=== PATIENT | female | born 1950 | race Caucasian/White ===

== ENCOUNTER → 2016-02-23 | Outpatient (CLI) | payer OTHER ==
--- NOTE | 2016-02-23 16:11 | MAMMOGRAPHY REPORT ---
BILATERAL DIGITAL SCREENING MAMMOGRAM WITH CAD: 02/23/2016 CLINICAL HISTORY: Routine screening. Patient has no complaints. TECHNIQUE: Current study was also evaluated with a Computer Aided Detection (CAD) system. Bilatera l CC and MLO views were obtained. COMPARISON: Comparison is made to exams dated: 02/21/2015 mammogram, 01/04/2014 mammogram, 3 mammogram - [facility], and 11/05/2011 mammogram. BREAST COMPOSITION: The tissue of both breasts is heterogeneously dense, which may obscure small ma sses. FINDINGS: No suspicious masses, calcifications, or areas of architectural distortion are noted in e ither breast. There has been no significant interval change compared to prior exams. IMPRESSION: ACR BI-RADS CATEGORY 1: NEGATIVE There is no mammographic evidence of malignancy. A 1 year screening mammogram is recommended. The p atient will receive written notification of the results. Approximately 10% of breast cancers are not detected with mammography. A negative mammographic repor t should not delay biopsy if a clinically suggestive mass is present. Yamini Danielle M.D. ah/:02/23/2016 13:19:34 Neon Sign Maker: Carol Arreola [facility] letter sent: Normal 1/2 BI-RADS Code: ACR BI-RADS Category 1: Negative
== END | disposition home or self-care (01) ==
LOC: C.MAMM 11:08
PROVIDERS: ATTEND Family Medicine
DX: Z12.31 Encounter for screening mammogram for malignant neoplasm of breast (principal)

== ENCOUNTER → 2016-09-06 | Outpatient (CLI) | payer OTHER ==
--- NOTE | 2016-09-06 15:27 | DIAGNOSTIC IMAGING REPORT ---
ULTRASOUND ANKLE BRACHIAL INDICES CLINICAL HISTORY: Leg pain. FINDINGS: Ankle-brachial indices were assessed in ultrasound. Right brachial pressure measures 154 and left brachial pressure measures 136. Pressures in the right posterior tibial artery measure 162 for an RICH of 1.05, and pressures in the right dorsalis pedis artery measure 158 for an RICH of 1.03. Pressures in the left posterior tibial artery measure 173 for an RICH of 1.12, and pressures in the left dorsalis pedis measure 156 for an RICH of 1.01. IMPRESSION: Ankle-brachial indices as above. Dictated: 09/06/2016 3:15 PM Transcribed: 09/06/2016 3:27 PM [email or web address] Electronically signed by: Jori Mccurdy M.D. 09/06/2016 5:19 PM Dictated Date/Time: 09/06/2016 3:15 PM
== END | disposition home or self-care (01) ==
LOC: C.ULTR 14:08
PROVIDERS: ATTEND Family Medicine
DX: M79.606 Pain in leg, unspecified (principal)

== ENCOUNTER → 2017-02-25 | Outpatient (CLI) | payer OTHER ==
--- NOTE | 2017-02-26 07:51 | MAMMOGRAPHY REPORT ---
BILATERAL DIGITAL SCREENING MAMMOGRAM TOMOSYNTHESIS WITH CAD: 02/25/2017 CLINICAL HISTORY: Routine screening. Patient has no complaints. TECHNIQUE: Breast tomosynthesis in addition to standard 2D mammography was performed. Current study was also evaluated with a Computer Aided Detection (CAD) system. COMPARISON: Comparison is made to exams dated: 02/23/2016 mammogram, 02/21/2015 mammogram, 01/04/2014 mammogram, 12/08/2012 mammogram - [facility], 11/05/2011 mammogram, and 11/03/2010 ma mmogram. BREAST COMPOSITION: The tissue of both breasts is heterogeneously dense, which may obscure small mas ses. FINDINGS: There are minimal vascular calcifications in the breasts. An asymmetry in the lateral post erior left breast on the CC view appears very similar to the prior 2016, 2015, 2013 and 2012 mammogra ms, and effaces on the corresponding tomosynthesis images, most likely representing normal overlappin g fibroglandular tissue. No new suspicious mass, architectural distortion or cluster of microcalcifi cations is seen. IMPRESSION: ACR BI-RADS CATEGORY 1: NEGATIVE There is no mammographic evidence of malignancy. A 1 year screening mammogram is recommended. The pa tient will receive written notification of the results. Approximately 10% of breast cancers are not detected with mammography. A negative mammographic report should not delay biopsy if a clinically suggestive mass is present. Lisa Sin M.D. ay/:02/25/2017 14:46:03 Qc Manager: Negrita GUILLAUME(Kareem)(Serge)(DARRIN), [facility] letter sent: Normal 1/2 BI-RADS Code: ACR BI-RADS Category 1: Negative
== END | disposition home or self-care (01) ==
LOC: C.MAMM 12:12
PROVIDERS: ATTEND Family Medicine
DX: Z12.31 Encounter for screening mammogram for malignant neoplasm of breast (principal)